=== PATIENT | male | born 1960 | race Caucasian/White ===

== ENCOUNTER → 2016-05-28 | Outpatient (CLI) | payer BC, OTHER | END | disposition home or self-care (01) | LOC: PCVCIMAG 09:06 | PROVIDERS: ATTEND Internal Medicine Cardiovascular Disease | DX: I25.10 Atherosclerotic heart disease of native coronary artery without angina pectoris (principal); I10 Essential (primary) hypertension; Z95.5 Presence of coronary angioplasty implant and graft | CPT/HCPCS: 93325; 93351 ==

== ENCOUNTER → 2017-10-20 | Outpatient (CLI) | payer OTHER | END | disposition home or self-care (01) | LOC: PCVCIMAG 14:51 | DX: I83.93 Asymptomatic varicose veins of bilateral lower extremities (principal); M79.89 Other specified soft tissue disorders | CPT/HCPCS: 93970 ==

== ENCOUNTER → 2019-01-01 | Outpatient (CLI) | payer OTHER ==
--- NOTE | 2019-01-03 17:50 | PCVCIMAG ---
APPROVED REPORT Study performed: 01/01/2019 14:12:57 Exam: Stress Echocardiogram Indication: CAD s/p PCI, Hypertension, Dyspnea Patient Location: Echo lab Stress Nurse: Sangeeta Goode RN Status: routine Ht: 5 ft 10 in HR: 66 bpm BP: 110/70 mmHg Rhythm: NSR Procedure The patient underwent an Exercise Stress Test using the Samuel Protocol. Blood pressure, heart rate, and EKG were monitored. An Echocardiogram was performed by signals collection technician in four stages in quad fashion. At peak stress, four selected images were obtained and placed side by side with resting images for comparison. Stress Test Details Stress Test: Exercise stress testing was performed using a Samuel protocol. HR Resting HR: 66 bpmMax Heart Rate (APMHR): 164 bpm Max HR Achieved: 166 bpmTarget HR (85% APMHR): 139 bpm % of APMHR: 101 Recovery HR: 100 bpm HR response to stress: Normal HR response to stress BP Resting BP: 110/70 mmHg Max BP: 142/68 mmHg Recovery BP: 120/62 mmHg BP response to stress: Normal blood pressure response to stress. ECG Resting ECG: Sinus Rhythm Stress ECG: Sinus Rhythm ST Change: Nondiagnostic V-pacing or LBBB Arrhythmia: None Recovery ECG: Sinus Rhythm Recovery ST Change: Normal Recovery Arrhythmia: None Clinical Reason for Termination: Maximal effort Stress Symptoms: Dyspnea Exercise duration: 14 min 10 sec Highest Stage Achieved: Stage 5: 5.0 mph at 18% grade. Exercise capacity: 17.5 METs Overall Exercise Capacity for Age: Excellent Scale: Active Angina Score: None Pre-Stress Echo The resting Echocardiogram showed normal left ventricular contractility with an estimated Ejection Fraction of about >55%. The resting echocardiogram demonstrated normal wall motion in all wall segments. Post-Stress Echo The stress Echocardiogram showed normal left ventricular contractility with an estimated Ejection Fraction of about 65%. Compared to rest, there were no stress-induced wall motion abnormalities. Clinical No clinical or ECG evidence for ischemia. Conclusion Clinical Response: Non-ischemic Exercise Capacity: Superior Stress ECG Response: Non-ischemic Stress Echo Images: Non-ischemic The left ventricle is normal in size and wall thickness in both the rest and stress images. Trace tricuspid regurgitation with PAP of 31 mmHg. Mild mitral regurgitation present. Normal aortic and pulmonic valves. Other Information Study Quality: Adequate <Conclusion> The left ventricle is normal in size and wall thickness in both the rest and stress images. Trace tricuspid regurgitation with PAP of 31 mmHg. Mild mitral regurgitation present. Normal aortic and pulmonic valves.
== END | disposition home or self-care (01) ==
LOC: PCVCIMAG 14:05
PROVIDERS: ATTEND Internal Medicine Cardiovascular Disease
DX: I34.0 Nonrheumatic mitral (valve) insufficiency (principal); I25.10 Atherosclerotic heart disease of native coronary artery without angina pectoris; I10 Essential (primary) hypertension; R06.00 Dyspnea, unspecified
CPT/HCPCS: 93325; 93351